=== PATIENT | female | born 1960 | race African-American/Black ===

== ENCOUNTER 2017-08-22 15:17 | Inpatient (IN) | payer OTHER ==
[~2017-08-22] VITALS: Ht 165.1 cm; Wt 104.3 kg
[2017-08-22] MEDS ORDERED: SODIUM CHLORIDE 0.9% 1,000 ML IV ONE (15:36)
[2017-08-22] MEDS ORDERED: INSULIN REGULAR (HUMULIN R) UD 100 UNITS/ML SYR SUBCUT ONE (15:45)
[2017-08-22 16:07] LABS: BASOPHILS % 0.5 % (0.0-2.0); EOSINOPHILS % 1.1 % (0.0-5.0); HEMATOCRIT. 38.5 % (36.0-48.0); HEMOGLOBIN. 12.9 g/dL (12.0-16.0); LYMPHOCYTES % 40.5 % (20.0-50.0); MEAN CORPUSCULAR HEMOGLOBIN 31.3 pg (28.0-32.0); MEAN CORPUSCULAR VOLUME 93.7 fL (81.0-99.0); MONOCYTES % 4.9 % (2.0-8.0); PLATELET 182 x1000/uL (130-400); RED BLOOD CELL COUNT 4.11 mill/uL (4.2-5.4); RED CELL DISTRIBUTION WIDTH 12.1 % (11.6-14.6)
[2017-08-22 16:13] LABS: INR 1.1; PARTIAL THROMBOPLASTIN TIME 22.9 sec (23.4-31.0); PROTHROMBIN TIME 10.9 sec (9.4-11.6)
[2017-08-22 16:21] LABS: CARBON DIOXIDE 27 mEq/L (21-32); CHLORIDE 99 mEq/L (98-107); ETHANOL BLOOD < 10 mg/dL; TROPONIN I < 0.02 ng/mL (0.00-0.04)
[2017-08-22] MEDS ORDERED: ASPIRIN 325MG EC TABLET PO ONE (17:15)
[2017-08-22] MEDS ORDERED: INSULIN REGULAR (HUMULIN R) 300UNITS/3ML SUBCUT SCH (17:15)
[2017-08-22 19:21] LABS: *AMPHETAMINES SCREEN URINE NEGATIVE (NEGATIVE); *BARBITURATES SCREEN URINE NEGATIVE (NEGATIVE); *BENZODIAZEPINES SCREEN URINE NEGATIVE (NEGATIVE); *COCAINE SCREEN URINE NEGATIVE (NEGATIVE); CANNABINOID URINE SCREEN NEGATIVE (NEGATIVE); METHADONE URINE SCREEN NEGATIVE (NEGATIVE); OPIATES URINE SCREEN NEGATIVE (NEGATIVE); PHENCYCLIDINE URINE SCREEN NEGATIVE (NEGATIVE)
[2017-08-22 21:40] VITALS: BP 166/86
[2017-08-22] MEDS ORDERED: ESTR0.6264 PO (22:58)
[2017-08-22] MEDS ORDERED: GLIP PO (22:59)
[2017-08-22] MEDS ORDERED: METFORMIN PO (22:59)
[2017-08-22] MEDS ORDERED: MAGNESIUM/ALUMINUM HYDROXIDE/SIMETHICONE 30ML UDC PO PRN (23:00)
[2017-08-22] MEDS ORDERED: ONDANSETRON HCL 4MG/2ML VIAL IV PRN (23:00)
[2017-08-22] MEDS ORDERED: LOSA100T14 PO (23:00)
[2017-08-22] MEDS ORDERED: ENOXAPARIN 40MG/0.4ML SYR SUBCUT SCH (23:00)
[2017-08-22] MEDS ORDERED: CLONIDINE 0.1MG TABLET PO PRN (23:00)
[2017-08-22] MEDS ORDERED: INSULIN DETEMIR UD 100 UNITS/ML SYR SUBCUT SCH (23:00)
[2017-08-22] MEDS ORDERED: DIPHENHYDRAMINE 50MG/ML VIAL IV PRN (23:00)
[2017-08-22] MEDS ORDERED: DEXTROSE 50% WATER 50ML SYRINGE IV PRN (23:00)
[2017-08-22] MEDS ORDERED: ACETAMINOPHEN 325MG TABLET PO PRN (23:00)
[2017-08-22] MEDS ORDERED: OMEP20TA2 PO (23:01)
[2017-08-22 23:10] VITALS: BP 149/70
[2017-08-22] MEDS: ENOXAPARIN 30MG/0.3ML SYR SUBCUT SCH (23:15)
[2017-08-23] VITALS (8 sets, daily range): BP systolic 124–160; BP diastolic 72–90
[2017-08-23] MEDS: ENOXAPARIN 30MG/0.3ML SYR SUBCUT SCH ×2 (00:31→13:01)
[2017-08-23] MEDS: BLOOD SUGAR DIAGNOSTIC STRIP TEST SCH ×3 (06:16→16:19)
[2017-08-23] MEDS: SODIUM CHLORIDE 0.9% INJ 3ML FLUSH IVF SCH ×2 (06:28→13:09)
[2017-08-23] MEDS: INSULIN LISPRO 100 UNITS/ML SUBCUT SCH ×3 (06:32→17:58)
[2017-08-23] MEDS ORDERED: ASPIRIN 325MG EC TABLET PO SCH (09:00)
== END 2017-08-23 20:30 | disposition short-term general hospital (02) | DRG 65 ==
LOC: ER 15:28 → 8WST 17:32 → ENRESERV 19:34
PROVIDERS: ADMIT Internal Medicine; ATTEND Internal Medicine
DX: I63.9 Cerebral infarction, unspecified (principal); G81.94 Hemiplegia, unspecified affecting left nondominant side; E11.65 Type 2 diabetes mellitus with hyperglycemia; I10 Essential (primary) hypertension; K21.9 Gastro-esophageal reflux disease without esophagitis; E66.9 Obesity, unspecified; Z68.38 Body mass index [BMI] 38.0-38.9, adult; Z88.8 Allergy status to other drugs, medicaments and biological substances; Z88.6 Allergy status to analgesic agent
CPT/HCPCS: 36415; 70450; 71010; 80053; 80061; 80305; 82962; 83036; 83880; 84484; 85025; 85610; 85730; 86850; 86900; 93005; 93880; 96360; 96361; 97116; 97162; 97166; 97530; 99291; G0482; J1650; J1815; J7030